=== PATIENT | male | born 1970 | race Two or more races ===

== ENCOUNTER 2019-01-08 17:47 | Emergency (ER) | payer SELFPAY ==
[~2019-01-08] VITALS: Ht 162.6 cm; Wt 68.0 kg
[2019-01-08] MEDS ORDERED: NKM (18:05)
[2019-01-08 18:12] VITALS: BP 179/108
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
[2019-01-08] MEDS ORDERED: Neosporin Oint Ud Pkt TOPIC ONE (18:15)
[2019-01-08] MEDS ORDERED: Tetanus/Diptheria/Pertussis IM ONE (18:15)
--- NOTE | 2019-01-08 18:20 | NUR ---
ED Nurse Note: pt down to imaging
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
[2019-01-08] MEDS ORDERED: AUGMENTIN 875-1 EAC1 ORAL (19:04)
[2019-01-08] MEDS ORDERED: TYLENOL EXTRA500 MG ORAL (19:04)
--- NOTE | 2019-01-08 19:05 | NUR ---
HAND-OFF: Report given to Shakir HUDDLESTON.
[2019-01-08 19:21] VITALS: BP 157/110
--- NOTE | 2019-01-08 19:23 | NUR ---
ER DISCHARGE NOTE: Patient is cleared to be discharged per ERMD, pt is aox4, on room air, with stable vital signs. pt was given dc and prescription instructions, pt was able to verbalize understanding, pt id band removed without complications. pt is able to ambulate with steady gait. pt took all belongings.
[2019-01-08 19:24] VITALS: BP 157/110
--- NOTE | 2019-01-09 11:42 | Diagnostic Imaging Report ---
Indication: Pain, trauma, suspected foreign body Technique: 3 views of the right third and fourth fingers Comparison: none Findings: On the lateral view, punctate and curvilinear metallic densities are seen projected in the anterior soft tissues of the third digit anterior to the base of the proximal phalanx. There is questionably a shallow soft tissue defect, possibly laceration, anterior to the third distal interphalangeal joint. No acute fractures. No dislocations. No other radiopaque foreign body demonstrated. Impression: Suspect small metallic foreign bodies in the soft tissues of the anterior third digit, as described. This represents a discrepancy from the ER preliminary report described in the electronic medical record. Discrepant findings phoned to Dr. Shah in the emergency room at the time of interpretation No acute bony trauma
--- NOTE | 2019-01-09 15:13 | Emergency Room Report ---
Physical Exam Vital Signs Date Time Temp Pulse Resp B/P (MAP) Pulse Ox O2 Delivery O2 Flow Rate FiO2 01/08/19 17:58 99.0 102 16 179/108 (131) 96 Room Air Medical Decision Making Diagnostic Impression: Primary Impression: Head contusion Additional Impressions: Infected abrasion of elbow Laceration of finger with infection Foreign body hand ER Course Notified by radiologist this morning while overreading images from last night that he noticed a radiopaque foreign body in the right middle finger consistent with where the patient's laceration was. He is started on Augmentin and his tetanus was up-to-date. This is a very small fragment that would not require removal however I did attempt to notify the patient. He did not leave a phone number but we will send a certified letter. Last Vital Signs Date Time Temp Pulse Resp B/P (MAP) Pulse Ox O2 Delivery O2 Flow Rate FiO2 01/08/19 19:24 98.4 90 16 157/110 96 Room Air Disposition: HOME, SELF-CARE Condition: Stable Scripts Acetaminophen* (TYLENOL EXTRA STRENGTH*) 500 Mg Tablet 500 MG ORAL Q8H PRN for Prn Headache/Temp > 101, #30 TAB 0 Refills Prov: Martin Cabrera 01/08/19 Amoxicillin/Potassium Clav 875-125* (AUGMENTIN 875-125 TABLET*) 1 Each Tablet 1 TAB ORAL TWICE A DAY for 7 Days, #14 TAB Prov: Martin Cabrera 01/08/19 Referrals: NOT CHOSEN IPA/,REFERRING (PCP) Patient Instructions: Facial or Scalp Contusion, [id number], Laceration Care , Adult, [id number], Abrasion, [id number] Additional Instructions: Take medication as directed follow-up with your primary care provider regarding her blood pressure. If worsening symptoms return to the emergency room at this time your laceration has already started to heal and no closure needed however due to high risk of infection since it is 48 hours after the laceration occurred you need to start taking your antibiotics. Dk Shah MD Jan 09, 2019 15:13
== END 2019-01-08 19:26 | disposition home or self-care (01) ==
LOC: EMR 18:29
DX: S00.93XA Contusion of unspecified part of head, initial encounter (principal); S50.312A Abrasion of left elbow, initial encounter; S61.212A Laceration without foreign body of right middle finger without damage to nail, initial encounter; Y04.2XXA Assault by strike against or bumped into by another person, initial encounter; Y93.9 Activity, unspecified; Y92.9 Unspecified place or not applicable; Z23 Encounter for immunization
CPT/HCPCS: 70450; 90471; 90715; 93005; 99284